=== PATIENT | male | born 1950 | race Two or more races ===

== ENCOUNTER 2022-06-17 15:05 | Inpatient (IN) | payer OTHER ==
[~2022-06-17] VITALS: Ht 165.1 cm; Wt 86.3 kg
[2022-06-17] MEDS ORDERED: NITROGLYCERIN 0.4 MG SL TAB SL ONE (15:30)
[2022-06-17] MEDS ORDERED: ASPirin 325 MG TAB PO ONE (15:30)
[2022-06-17 15:53] LABS: Basophils # (auto) 0 10 ^3/uL (0-0.2); Basophils % (auto) 0.7 % (0.0-2.0); Eosinophils # (auto) 0.1 10 ^3/uL (0-0.8); Eosinophils % (auto) 1.2 % (0.0-7.0); Hematocrit 44.7 % (41.0-53.0); Hemoglobin 14.6 g/dL (13.5-17.5); Lymphocytes # (auto) 1.8 10 ^3/uL (0.4-5.4); Lymphocytes % (auto) 28.7 % (10.0-50.0); Mean Corpuscular Hemoglobin 29.7 pg (28.0-32.0); Mean Corpuscular Hgb Conc. 32.7 g/dL (32.0-36.0); Mean Corpuscular Volume 90.9 fL (80.0-100.0); Monocytes # (auto) 0.4 10 ^3/uL (0-1.3); Monocytes % (auto) 6.8 % (0.0-12.0); Neutrophils % (auto) 62.6 % (37.0-80.0); Nucleated Red Blood Cells % 0.1 %; Red Blood Cells 4.92 10^6/uL (4.5-5.90); White Blood Cell 6.4 10^3/uL (4.4-10.8)
[2022-06-17 16:02] LABS: Urine Bacteria FEW /hpf (None Seen); Urine Blood Negative /uL (Negative); Urine Specific Gravity 1.011 (1.001-1.035); Urine WBC <1 /hpf (0 - 3)
[2022-06-17 16:18] LABS: Albumin 3.9 g/dL (3.4-5.0); BUN/Creatinine Ratio 8.9; Calcium 9.1 mg/dL (8.5-10.1); Potassium 4.2 mmol/L (3.5-5.1)
[2022-06-17 16:21] LABS: Total Protein 6.9 g/dL (6.4-8.2)
[2022-06-17] MEDS ORDERED: ENOXAPARIN SOD 100 MG/1 ML SYRINGE SC ONE (17:30)
[2022-06-17] MEDS ORDERED: HYDROcodone-ACET 5/325MG TAB PO PRN (18:45)
[2022-06-17] MEDS ORDERED: ACETAMINOPHEN 325 MG TAB PO PRN (18:45)
[2022-06-17] MEDS ORDERED: DEXTROSE (50%) 50ML SYRG IV PRN (18:45)
[2022-06-17] MEDS ORDERED: NITROGLYCERIN 0.4 MG SL TAB SL PRN (18:45)
[2022-06-17] MEDS ORDERED: ONDANSETRON HCL 4 MG/2 ML VIAL IV PRN (18:45)
[2022-06-17] MEDS ORDERED: DOCUSATE SOD 100 MG CAP PO PRN (18:45)
[2022-06-17] MEDS ORDERED: MORPHINE SULFATE INJ 2 MG/ml SYRG IV PRN (18:45)
[2022-06-17] MEDS ORDERED: TAMS0.4C36 PO (18:46)
[2022-06-17] MEDS ORDERED: ATOR-47 PO (18:46)
[2022-06-17] MEDS: InsuLIN REG 1unit/0.01ml Soln (100units/ml) SC SCH (22:00)
[2022-06-17] MEDS: ACCU-CHEK COMFORT CURVE STRIP VI SCH (22:28)
[2022-06-17 23:13] VITALS: BP 151/86
[2022-06-17 23:29] VITALS: BP 151/86
[2022-06-18] MEDS ORDERED: GLIP5TAB12 PO (00:11)
[2022-06-18] MEDS ORDERED: METF-370 PO (00:11)
[2022-06-18] MEDS ORDERED: LOSA-69 PO (00:11)
[2022-06-18] MEDS ORDERED: NITR0.4S29 (00:11)
[2022-06-18] MEDS ORDERED: CARV6.2551 PO (00:11)
[2022-06-18] MEDS ORDERED: ASPI-543 PO (00:11)
[2022-06-18] MEDS ORDERED: OMEP-263 PO (00:11)
[2022-06-18 05:00] VITALS: BP 143/87
[2022-06-18 05:24] LABS: Basophils # (auto) 0 10 ^3/uL (0-0.2); Basophils % (auto) 0.5 % (0.0-2.0); Eosinophils # (auto) 0.1 10 ^3/uL (0-0.8); Eosinophils % (auto) 2.1 % (0.0-7.0); Hematocrit 45.3 % (41.0-53.0); Hemoglobin 15.4 g/dL (13.5-17.5); Lymphocytes # (auto) 1.7 10 ^3/uL (0.4-5.4); Mean Corpuscular Hemoglobin 30.6 pg (28.0-32.0); Mean Corpuscular Hgb Conc. 33.9 g/dL (32.0-36.0); Mean Corpuscular Volume 90.2 fL (80.0-100.0); Monocytes # (auto) 0.5 10 ^3/uL (0-1.3); Monocytes % (auto) 8.6 % (0.0-12.0); Neutrophils # (auto) 3.1 10 ^3/uL (1.6-8.6); Neutrophils % (auto) 57.8 % (37.0-80.0); Nucleated Red Blood Cells % 0.1 %; Red Blood Cells 5.02 10^6/uL (4.5-5.90); Red Cell Distribution Width 14.9 % (11.8-14.3); White Blood Cell 5.4 10^3/uL (4.4-10.8)
[2022-06-18 05:58] LABS: Albumin 3.5 g/dL (3.4-5.0); BUN/Creatinine Ratio 10.2; Bilirubin, Total 1.2 mg/dL (0.2-1.0); Calcium 9.1 mg/dL (8.5-10.1); Total Protein 6.5 g/dL (6.4-8.2)
[2022-06-18] MEDS: InsuLIN REG 1unit/0.01ml Soln (100units/ml) SC SCH ×4 (06:18→22:22)
[2022-06-18] MEDS: ACCU-CHEK COMFORT CURVE STRIP VI SCH ×4 (06:18→22:16)
[2022-06-18 09:00] VITALS: BP 140/85
[2022-06-18] MEDS: ATORVASTATIN 20 MG TAB PO SCH (10:31)
[2022-06-18] MEDS: ASPirin 81 mg TAB PO SCH (10:31)
[2022-06-18 12:47] VITALS: BP 138/80
[2022-06-18] MEDS: ENOXAPARIN SOD 80 MG/0.8ML SYRINGE SC SCH ×2 (14:26→22:16)
[2022-06-18 16:38] LABS: INR 1.04 (0.9-1.15); Partial Thromboplastin Time 31.3 sec (24.6-33.4)
[2022-06-18 17:00] VITALS: BP 132/78
[2022-06-18] MEDS: TAMSULOSIN HYDROCHLORIDE 0.4 MG CAP PO SCH (18:19)
[2022-06-18 20:55] VITALS: BP 119/69
[2022-06-19] VITALS (8 sets, daily range): BP systolic 122–151; BP diastolic 70–87
[2022-06-19] MEDS: InsuLIN REG 1unit/0.01ml Soln (100units/ml) SC SCH ×4 (06:53→22:27)
[2022-06-19] MEDS: ACCU-CHEK COMFORT CURVE STRIP VI SCH ×4 (06:53→22:22)
[2022-06-19] MEDS: ENOXAPARIN SOD 80 MG/0.8ML SYRINGE SC SCH (07:50)
[2022-06-19] MEDS: ASPirin 81 mg TAB PO SCH (09:43)
[2022-06-19] MEDS: ATORVASTATIN 20 MG TAB PO SCH (09:43)
[2022-06-19] MEDS ORDERED: HEPARIN SODIUM (PORCINE) 5000 UNITS/ML 1ML VIAL ONE (16:02)
[2022-06-19] MEDS ORDERED: fentaNYL CITRATE 100 MCG/2 ML VL ONE (16:02)
[2022-06-19] MEDS ORDERED: VERAPAMIL 2.5MG/ML INJ 2ML VIAL IV ONE (16:02)
[2022-06-19] MEDS ORDERED: MIDAZOLAM HCL 2MG/2ML 2ml VIAL (1mg/ml) ONE (16:03)
[2022-06-19] MEDS ORDERED: SODIUM CHL 0.9% 50 ML ONE (16:03)
[2022-06-19] MEDS ORDERED: ANGIOMAX 250 MG VIAL IV ONE (16:04)
[2022-06-19] MEDS ORDERED: LIDOCAINE 2%HCL (LOCAL ANESTH.) INJ 20ML MDV ONE (16:08)
[2022-06-19] MEDS ORDERED: IOHEXOL 350 MG/ML 100ML IJ ONE ×2 (16:08→16:16)
[2022-06-19] MEDS ORDERED: ASPirin 325 MG TAB ONE (17:03)
[2022-06-19] MEDS ORDERED: TICAGRELOR 90 MG TAB ONE (17:03)
[2022-06-19] MEDS: TAMSULOSIN HYDROCHLORIDE 0.4 MG CAP PO SCH (18:00)
[2022-06-19] MEDS: TICAGRELOR 90 MG TAB PO SCH (22:22)
[2022-06-20 05:00] VITALS: BP 149/92
[2022-06-20] MEDS: InsuLIN REG 1unit/0.01ml Soln (100units/ml) SC SCH ×2 (06:35→12:08)
[2022-06-20] MEDS: ACCU-CHEK COMFORT CURVE STRIP VI SCH ×2 (06:35→11:55)
[2022-06-20 09:00] VITALS: BP 140/88
[2022-06-20] MEDS: TICAGRELOR 90 MG TAB PO SCH (09:44)
[2022-06-20] MEDS: ASPirin 81 mg TAB PO SCH (09:45)
[2022-06-20] MEDS: ATORVASTATIN 20 MG TAB PO SCH (09:47)
[2022-06-20 13:00] VITALS: BP 134/90
[2022-06-20] MEDS ORDERED: TICA90TA PO (13:02)
[2022-06-20] MEDS ORDERED: CARV6.2551 PO (13:02)
[2022-06-20] MEDS ORDERED: ASPI-543 PO (13:02)
[2022-06-20] MEDS ORDERED: LOSA-69 PO (13:02)
[2022-06-20] MEDS ORDERED: ATOR-47 PO (13:02)
[2022-06-20 17:00] VITALS: BP 145/81
== END 2022-06-20 17:25 | disposition home or self-care (01) | DRG 247 ==
LOC: ER 15:05 → TELE 18:37 → TELE-EAST 22:55
PROVIDERS: ADMIT Nurse Practitioner Family; ATTEND Hospitalist
PROC: 027036Z Dilation of Coronary Artery, One Artery with Three Drug-eluting Intraluminal Devices, Percutaneous Approach (ICD-10-PCS; principal; 2022-06-19)
PROC: B2111ZZ Fluoroscopy of Multiple Coronary Arteries using Low Osmolar Contrast (ICD-10-PCS; 2022-06-19)
DX: I21.4 Non-ST elevation (NSTEMI) myocardial infarction (principal); N40.0 Benign prostatic hyperplasia without lower urinary tract symptoms; E11.9 Type 2 diabetes mellitus without complications; Z20.822 Contact with and (suspected) exposure to COVID-19; I10 Essential (primary) hypertension; I25.2 Old myocardial infarction; Z79.899 Other long term (current) drug therapy
CPT/HCPCS: 36415; 71045; 80053; 81001; 82962; 84484; 85025; 85379; 85610; 85730; 86850; 86900; 86901; 92928; 92929; 93005; 93454; 96372; 99152; 99153; C1874; G0378; J1815; J2250